=== PATIENT | female | born 1985 | race American Indian/Alaskan Native ===

== ENCOUNTER 2017-09-19 06:34 | Day surgery (SDC) | payer OTHER ==
[2017-09-18 12:03] LABS: Hematocrit 30.7 % (30.3-42.9); Hemoglobin 9.4 gm/dl (10.1-14.3); Red Blood Count 4.49 M/mm3 (3.65-5.03)
[2017-09-18 12:04] LABS: Basophils % (Auto) 0.5 % (0.0-1.8); Eosinophils # (Auto) 0.1 K/mm3 (0.0-0.4); Eosinophils % (Auto) 2.5 % (0.0-4.3); Lymphocytes # (Auto) 1.3 K/mm3 (1.2-5.4); Lymphocytes % (Auto) 24.6 % (13.4-35.0); Mean Corpuscular HGB Conc 31 % (30-34); Mean Corpuscular Hemoglobin 21 pg (28-32); Mean Corpuscular Volume 68 fl (79-97); Mean Platelet Volume 8.4 fl (6-12); Monocytes # (Auto) 0.4 K/mm3 (0.0-0.8); Monocytes % (Auto) 7.6 % (0.0-7.3); Platelet Count 240 K/mm3 (140-440); Red Cell Distribution Width 18.4 % (13.2-15.2)
[~2017-09-19 06:34] MED LIST: LACTATED RINGERS 1,000 ML IV SCH; VERSED IV NR
--- NOTE | 2017-09-19 07:40 | Short Stay Summary ---
Short Stay Documentation Date of service: 09/19/17 Narrative H&P: Pt is a 32yo BF G0 LMP 08/13/17 presents for surgical evaluation and treatment of an endometrial polyp. Pelvic u/s showed the uterus 9.4 x 5 x 4cm with a 1.3 x 1.1cm endometrial polyp. She now presents for a Hysteroscopy with polypectomy. - History Principal diagnosis: endometrial polyp H&P: obtained from office Past Medical History: No medical history Past Surgical History: No surgical history Social history: no significant social history, single - Allergies and Medications Current Medications: Allergies No Known Allergies Allergy (Unverified 09/15/17 15:56) Home Medications Medication Instructions Recorded Confirmed Last Taken Type Acetaminophen [Non-Aspirin] 325 mg PO PRN PRN 09/15/17 09/15/17 Unknown History Active Medications Lactated Ringer's (Lactated Ringers) 1,000 mls @ 100 mls/hr IV DIRECT OLIVIA Stop: 09/19/17 23:59 Cefazolin Sodium (Ancef/Sterile Water 2 Gm/20 Ml) 2 gm in 20 mls @ 80 mls/hr IV PREOP NR; Protocol Midazolam HCl (Versed) 2 mg IV PREOP NR Stop: 09/19/17 23:59 - Physical exam General appearance: no acute distress Integumentary: no rash HEENT: Atraumatic Lungs: Clear to auscultation Breasts: deferred Heart: Regular rate Gastrointestinal: normal Female Genitourinary: deferred Extremities: no ischemia Neurological: Normal gait, Normal speech - Brief post op/procedure progress note Date of procedure: 09/19/17 Pre-op diagnosis: Endometrial polyps Post-op diagnosis: same Procedure: 1. Hysteroscopy 2. Polypectomy Anesthesia: MAC Findings: An enlarged uterus with multiple endometrial polyps. Surgeon: NOÉ PEREZ Estimated blood loss: minimal Pathology: list (endometrial polyps) Specimen disposition: to lab Condition: stable - Hospital course Hospital course: Unremarkable. - Disposition Condition at discharge: Good Disposition: DC-01 TO HOME OR SELFCARE - Discharge Diagnoses (1) Endometrial polyp Status: Resolved Short Stay Discharge Plan Activity: no restrictions Diet: regular Follow up with: NOÉ PEREZ MD [Primary Care Provider] - 14 Days Prescriptions: Ibuprofen [Motrin] 800 mg PO Q8HR PRN #30 tablet PRN Reason: Pain, Moderate (4-6)
--- NOTE | 2017-09-19 07:48 | Anesthesia Consultation ---
Anesthesia Consult and Med Hx - Airway Anesthetic Teeth Evaluation: Good ROM Head & Neck: Adequate Mental/Hyoid Distance: Adequate Mallampati Class: Class II Intubation Access Assessment: Good - Pulmonary Exam CTA: Yes - Cardiac Exam Cardiac Exam: RRR - Pre-Operative Health Status ASA Pre-Surgery Classification: ASA1 - Pulmonary Hx Asthma: Yes (When younger) - Central Nervous System Hx Psychiatric Problems: No - Hematic Hx Anemia: Yes - Other Systems Hx Alcohol Use: Yes (occas) Hx Cancer: No
--- NOTE | 2017-09-19 07:48 | Anesthesia Day of Surgery ---
Anesthesia Day of Surgery - Day of Surgery Patient Examined: Yes Patient H&P Reviewed: Yes Patient is NPO: Yes
[2017-09-19] MEDS ORDERED: ANCEF/STERILE WATER 2 GM/20 ML 2 GM/20 ML SYRINGE IV NR (08:00)
[2017-09-19] MEDS ORDERED: SUBLIMAZE IV PRN (08:45)
[2017-09-19] MEDS ORDERED: ZOFRAN IV PRN (08:45)
[2017-09-19] MEDS ORDERED: DILAUDID IV PRN ×2 (08:45→11:20)
[2017-09-19] MEDS ORDERED: DIPRIVAN 10 MG/ML IV ONE (09:09)
[2017-09-19] MEDS ORDERED: DILAUDID ONE (09:09)
[2017-09-19] MEDS ORDERED: XYLOCAINE MPF 2% ONE (09:09)
[2017-09-19] MEDS ORDERED: ZOFRAN ONE ×2 (09:36→09:40)
[2017-09-19] MEDS ORDERED: NACL 0.9% IR ONE (09:49)
--- NOTE | 2017-09-19 10:17 | Operative Report ---
Operative Report Operative Report: Date of procedure: 09/19/2017 Pre-operative diagnosis: Endometrial polyps Post-operative diagnosis: Same Procedure name(s): Hysteroscopy with polypectomy Surgeon: Tyree Ledesma MD [employer] Operations Manager: None Anesthesia: Gen. mask EBL: Minimal less than 20 mL's Findings: An enlarged uterus with multiple polyps Procedure: After the patient was correctly identified, she was prepped and draped in the usual sterile fashion and placed in the dorsolithotomy position. First the bladder was emptied using a straight catheter, next the anterior lip of the cervix was grasped with a single-tooth tenaculum and the uterus was sounded to 8 cm. The cervical os was sequentially dilated and hysteroscope was introduced into the cervical canal. Immediately there was noted to be a large amounts of endometrial polyps blocking the cervical canal, and the uterine fundus could not yet be visualized. Next the a Myosure was introduced into the cervical canal and endometrial polyps removed using a sweeping technique. Once the endometrial polyps removed, smaller polyps removed from the uterine cavity and the fundus of the uterus was then visualized. There was normal tubal ostia bilaterally. At this point the procedure was considered complete. All instruments removed from the vagina. The patient tolerated the procedure well and was transferred to recovery in stable condition.
--- NOTE | 2017-09-19 14:36 | Post Anesthesia Evaluation ---
- Post Anesthesia Evaluation Patient Participated: Yes Airway Patent: Yes Stable Respiratory Function: Yes Nausea/Vomiting: No Temp > 96.8F: Yes Pain Manageable: Yes Adequeate Hydration: Yes Anesthesia Complications: No
[2017-09-19 16:43] VITALS: BP 124/70
== END 2017-09-19 12:15 | disposition home or self-care (01) ==
LOC: OR 06:34
PROVIDERS: ATTEND Obstetrics & Gynecology
DX: N84.0 Polyp of corpus uteri (principal); J45.909 Unspecified asthma, uncomplicated
CPT/HCPCS: 36415; 58558; 84703; 85025; 88305; A4217; C1782; J0690; J1170; J2250; J2405; J2704; J7120

== ENCOUNTER 2018-12-17 13:16 | Emergency (ER) | payer BC, OTHER ==
[2018-12-17 14:16] VITALS: BP 115/81
--- NOTE | 2018-12-17 14:41 | Event Note ---
ED Screening Note Date of service: 12/17/18 Time: 14:37 ED Screening Note: 33 y/o female comes in for vaginal bleeding. Last depo shot June 18. Was on sprintec in july. Having weakness, having blurry vision and dizziness. This initial assessment/diagnostic orders/clinical plan/treatment(s) is/are subject to change based on patients health status, clinical progression and re- assessment by fellow clinical providers in the ED. Further treatment and workup at subsequent clinical providers discretion. Patient/guardian urged not to elope from the ED as their condition may be serious if not clinically assessed and managed. Initial orders include:
[2018-12-17 14:55] LABS: Bilirubin,Urine NEG (Negative); Blood,Urine LG (Negative); Color,Urine Red (Yellow); Urobilinogen,Urine < 2.0 mg/dL (<2.0)
[2018-12-17 14:56] LABS: RBC,Urine > 182.0 /HPF (0.0-6.0)
[2018-12-17 15:24] LABS: INR 1.06 (0.87-1.13); Partial Thromboplastin Time 25.2 Sec. (24.2-36.6)
[2018-12-17 15:26] LABS: Basophils % (Auto) 0.6 % (0.0-1.8); Eosinophils # (Auto) 0.1 K/mm3 (0.0-0.4); Eosinophils % (Auto) 1.1 % (0.0-4.3); Hemoglobin 9.9 gm/dl (10.1-14.3); Lymphocytes # (Auto) 1.4 K/mm3 (1.2-5.4); Lymphocytes % (Auto) 29.6 % (13.4-35.0); Mean Corpuscular HGB Conc 31 % (30-34); Mean Corpuscular Volume 76 fl (79-97); Monocytes # (Auto) 0.5 K/mm3 (0.0-0.8); Monocytes % (Auto) 9.8 % (0.0-7.3); Platelet Count 233 K/mm3 (140-440); Red Blood Count 4.22 M/mm3 (3.65-5.03); Red Cell Distribution Width 17.3 % (13.2-15.2)
[2018-12-17] MEDS ORDERED: NACL 0.9% 1000 ML 1,000 ML IV ONE (15:57)
--- NOTE | 2018-12-17 17:05 | Emergency Department Report ---
HPI - General Chief Complaint: Vaginal Bleeding Time Seen by Provider: 12/17/18 14:37 - HPI HPI: PT COMES TO ER WITH VAG BLEEDING SINCE SEPTEMBER AFTER GETTING DEPO SHOT. SHE HAS SEEN OBGYN WHO TOLD HER TO WAIT THIS OUT. AMBULATORY. NO CP. NO SOB. RX NONE ED Past Medical Hx - Past Medical History Previous Medical History?: Yes Hx Asthma: Yes (childhood) Additional medical history: anemia - Surgical History Past Surgical History?: No - Social History Smoking Status: Never Smoker Substance Use Type: None - Medications Home Medications: Home Medications Medication Instructions Recorded Confirmed Last Taken Type Acetaminophen [Non-Aspirin] 325 mg PO PRN PRN 09/15/17 09/19/17 09/18/17 History Ibuprofen [Motrin] 800 mg PO Q8HR PRN #30 tablet 09/19/17 Unknown Rx ED Review of Systems ROS: Stated complaint: PROLONG MENSTRAL Other details as noted in HPI Comment: All other systems reviewed and negative Physical Exam - Physical Exam Vital Signs: Vital Signs 12/17/18 14:14 Temperature 98.6 F Pulse Rate 87 Respiratory 16 Rate Blood Pressure 115/81 O2 Sat by Pulse 100 Oximetry Physical Exam: A/O X 4; NO FOCAL DEFICIT S1S2 HR 90 LUNGS CTA ABD SNT EATING ON EXAM NO CVA TENDERNESS AMBULATORY NON TOXIC ED Course Vital Signs 12/17/18 14:14 Temperature 98.6 F Pulse Rate 87 Respiratory 16 Rate Blood Pressure 115/81 O2 Sat by Pulse 100 Oximetry ED Medical Decision Making - Lab Data Result diagrams: 12/17/18 15:01 - Medical Decision Making Vital Signs 12/17/18 14:14 Temperature 98.6 F Pulse Rate 87 Respiratory 16 Rate Blood Pressure 115/81 O2 Sat by Pulse 100 Oximetry Labs 12/17/18 12/17/18 12/17/18 14:41 15:01 15:01 WBC 4.9 RBC 4.22 Hgb 9.9 L Hct 32.0 MCV 76 L MCH 24 L MCHC 31 RDW 17.3 H Plt Count 233 Lymph % (Auto) 29.6 Mobile % (Auto) 9.8 H Eos % (Auto) 1.1 Baso % (Auto) 0.6 Lymph # 1.4 Mobile # 0.5 Eos # 0.1 Baso # 0.0 Seg Neutrophils % 58.9 Seg Neutrophils # 2.9 PT 13.5 INR 1.06 APTT 25.2 HCG, Quant Urine Color Red Urine Turbidity Cloudy Urine pH 6.0 Ur Specific [place] 1.005 Urine Protein 30 mg/dl Urine Glucose (UA) Neg Urine Ketones Neg Urine Blood Lg Urine Nitrite Neg Urine Bilirubin Neg Urine Urobilinogen < 2.0 Ur Leukocyte Esterase Neg Urine WBC (Auto) 54.0 H Urine RBC (Auto) > 182.0 U Epithel Cells (Auto) 2.0 Blood Type Antibody Screen 12/17/18 12/17/18 15:01 15:02 WBC RBC Hgb Hct MCV MCH MCHC RDW Plt Count Lymph % (Auto) [place] % (Auto) Eos % (Auto) Baso % (Auto) Lymph # [place] # Eos # Baso # Seg Neutrophils % Seg Neutrophils # PT INR APTT HCG, Quant < 2 Urine Color Urine Turbidity Urine pH Ur Specific [place] Urine Protein Urine Glucose (UA) Urine Ketones Urine Blood Urine Nitrite Urine Bilirubin Urine Urobilinogen Ur Leukocyte Esterase Urine WBC (Auto) Urine RBC (Auto) U Epithel Cells (Auto) Blood Type B NEGATIVE Antibody Screen Negative DUB P GETTING DEPO SHOT HAS SEEN DR TURPIN WHO TOLD HER TO WAIT IT OUT THEN PT SAID HE TOLD HER TO COME HERE HER BLOOD COUNTS ARE NOT TRANSFUSION THRESHOLD SHE HAS NO CP OR SOB SHE IS EATING ZAXBYS ON EXAM DC HOME WITH FOLLOW UP WITH OBGYN - Differential Diagnosis RO Critical care attestation.: If time is entered above; I have spent that time in minutes in the direct care of this critically ill patient, excluding procedure time. ED Disposition Clinical Impression: DUB (dysfunctional uterine bleeding) Disposition: DC-01 TO HOME OR SELFCARE Is pt being admited?: No Does the pt Need Aspirin: No Condition: Stable Instructions: Dysfunctional Uterine Bleeding (ED) Additional Instructions: FOLLOW UP WITH DR TURPIN IN AM ASK ABOUT PROGESTERONE BLOOD COUNTS Referrals: PRIMARY CARE, [Primary Care Provider] - 3-5 Days Time of Disposition: 17:11
== END 2018-12-17 17:48 | disposition home or self-care (01) ==
LOC: ED 13:16
DX: N93.8 Other specified abnormal uterine and vaginal bleeding (principal); J45.909 Unspecified asthma, uncomplicated; Z86.2 Personal history of diseases of the blood and blood-forming organs and certain disorders involving the immune mechanism; Z79.899 Other long term (current) drug therapy
CPT/HCPCS: 36415; 81001; 84702; 85025; 85610; 85730; 86850; 86900; 86901; 87086; 99283; J7030